=== PATIENT | female | born 1945 | race Hispanic/Latino ===

== ENCOUNTER → 2025-03-03 | Outpatient (CLI) | payer OTHER, MEDICARE ==
[2025-03-03 10:06] LABS: INR 0.98 (0.85-1.15); PROTHROMBIN TIME 10.4 SEC (9.6-11.6)
[2025-03-03 10:07] LABS: PARTIAL THROMBOPLASTIN TIME 38.5 SEC (26.3-35.5)
--- NOTE | 2025-03-03 11:01 | HMCIMG ---
Ultrasound-guided thyroid biopsy- Fine-needle aspiration CLINICAL INDICATION: Lateral thyroid nodule COMPARISON: None. PROCEDURE: The procedure, with its potential risks and complications, was discussed with the patient, including the option of not performing the procedure. Verbal and written consent was obtained. A time-out was observed to confirm the correct patient, procedure, and site. The procedure was first performed on the right side for biopsy of right thyroid nodule. Immediately following, the procedure was performed on the left side, for the left thyroid biopsy. In both cases, the procedure is as follows: With the patient in supine position, the target nodule was identified by ultrasound. A skin site was marked, and the skin was prepped and draped in usual sterile fashion. Infiltration of 7 cc of 1% lidocaine into the subcutaneous tissues was performed for local anesthesia. Under ultrasound guidance, 4 passes with a 22 gauge needle were made into the nodule. Ultrasound immediately postprocedure showed no adjacent hematoma. Patient was observed for 30 minutes, and experienced no immediate postprocedure complications. IMPRESSION: Successful ultrasound-guided FNA of bilateral thyroid nodules.
--- NOTE | 2025-03-03 11:30 | NUR ---
U/S GD BILATERAL THYROID NODULE FNA TOLERATED PROCEDURE. PERFORMED BY DR Solo PINON. PUNCTURE SITE TO BILATERAL NECK SIDES. X4 SPECIMEN REMOVED FROM LT AND X4 TO THE RT REMOVED AND COLLECTED BY MAYANK FROM LAB AT BEDSIDE. END OF PROCEDURE AT 1110. NO BLEEDING NOTED. DRESSING APPLIED. DRY AND INTACT. DISCHARGE INSTRUCTIONS GIVEN TO PT. VERBALIZED UNDERSTANDING. DENIES PAIN.A&O. DISCHARGE VIA AMBULATORY WITH SPOUSE.
== END ==
LOC: RAH 09:22
PROVIDERS: ATTEND Internal Medicine
DX: E04.2 Nontoxic multinodular goiter (principal); I10 Essential (primary) hypertension; E78.5 Hyperlipidemia, unspecified; E66.3 Overweight; Z68.28 Body mass index [BMI] 28.0-28.9, adult; Z79.899 Other long term (current) drug therapy; Z79.01 Long term (current) use of anticoagulants
CPT/HCPCS: 10005; 10006; 36415; 76942; 85610; 85730; 88173; 88305